=== PATIENT | male | born 1935 | race Caucasian/White ===

== ENCOUNTER → 2018-01-13 | Day surgery (SDC) | payer MEDICARE ==
[~2018-01-13] MED LIST: ACETAMINOPHEN 1000 MG/100 ML 100 ML IV ONE; BELLADONNA ALKALOIDS/OPIUM 60 MG SUPP RECTAL ONE; ENOX40P SQ; EXCEDRIN; GENTAMICIN SULFATE 80 MG/2 ML VIAL ONE; GLUCCAP13 PO; LACTATED RINGER'S 1000 ML INJ 1,000 ML ONE; MIDAZOLAM HCL 2 MG/2 ML VIAL ONE; NS 100 ML (PAB BAG) 100 ML IV ONE; ONDANSETRON HCL 4 MG/2 ML VIAL IV PUSH ONE; OXYC-360 PO; PROPOFOL 200 MG/20 ML AMP IV ONE; STERILE WATER FOR INJECTION 20 ML VIAL ONE; TAMS0.4C67 PO; VITA100018 OR; VITA500T83 OR
--- NOTE | 2018-01-13 16:36 | TN ---
cc: Robb Burks MD DATE OF SURGERY: 01/13/2018 PREOPERATIVE DIAGNOSIS: Multiple large bladder calculi (ICD-10 code of N21.0.) POSTOPERATIVE DIAGNOSIS: Multiple large bladder calculi (ICD-10 code of N21.0.) PROCEDURE: Cystolitholapaxy (complex) (CPT code 27141.) INDICATIONS: Mr. Lowery is an 82-year-old gentleman with multiple large bladder calculi, the largest one measuring 3 cm who has been adamant about not wanting open removal and presents now for laser lithotripsy of the bladder calculi, possibly in a staged fashion. FINDINGS: Normal anterior urethra. 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 The ureteral orifice is normal size, shape and position effluxing clear urine. There is heavy trabeculation and multiple diverticula throughout and there are multiple large bladder calculi one of which is at least 3 cm. There is some inflamed mucosa, but no marcos tumor is noted. PROCEDURE: Procedure as well as risks and benefits were explained to the patient. Informed consent was obtained. The patient was taken to the major operative theater where he was placed in supine position. The patient was identified as well as the operative site. A universal timeout was performed in standard fashion. At this time, general anesthetic and prophylactic intravenous antibiotics consisting of gentamicin 80 mg was administered. After adequate anesthetic, the patient was placed in low dorsal lithotomy position, prepped and draped in the usual sterile fashion. At this time, a 22.5 Cymraes cystoscope with a 30 degree lens was inserted into the urethra to the level of the stricture. At this time, a 0.035 inch hybrid wire was placed through the strictured area, presumably into the bladder. The cystoscope removed. The guidewire was left in place and attached to the drapes. At this time, a 22.5-Cymraes cystoscope with a 30-degree lens was inserted into the urethra and bladder with the above findings. Attention was directed to the stones in questions and using a 1000 micron laser fiber and a holmium laser lithotripsy machine, laser lithotripsy of the stones was performed in the standard fashion using a variety of settings on the laser machine. After approximately 2 hours of lasing, the visualization became very poor and I was unable to complete all of the procedure and decision was made to finish the case and come back at a latter date to complete the rest of the lithotripsy of the remaining stone fragments. At this time, an Elik evacuator was used to evacuate all of the chips that could be small enough to evacuate. This was performed using both a 22.5-Cymraes and a 27-Cymraes sheath. After all of those smaller fragments could be removed, the cystoscope was removed and a 20-Cymraes 3-way hematuria catheter was placed with the irrigation port capped. Ten mL of sterile water insufflated the balloon with some bloody efflux of urine. At this time, the patient was placed back in the supine position, emerged from anesthetic without difficulty and transferred to the recovery room. He will be discharged home when criteria met. The patient will the patient will be required a staged procedure in the next several days for completion of the case. MD JEAN CLAUDE Marquis/HADLEY , 04:14 PM , 04:35 PM [facility]
== END | disposition home or self-care (01) ==
LOC: ESDC 11:15
PROVIDERS: ATTEND Urology
DX: N21.0 Calculus in bladder (principal)
CPT/HCPCS: 00910; 52318; J0131; J1580; J2250; J2405; J3010; J7120